=== PATIENT | female | born 2000 | race Caucasian/White ===

== ENCOUNTER 2021-03-16 14:11 | Outpatient (REF) | payer OTHER, SELFPAY ==
[2021-03-17 08:23] LABS: BV Int Neg Control Negative (Negative); BV Int Pos Control Positive (Positive)
[2021-03-17 08:28] LABS: CT PCR NOT DETECTED (Not Detect.); NG PCR NOT DETECTED (Not Detect.)
== END 2021-03-16 14:12 | disposition home or self-care (01) ==
LOC: HO.LAB 14:11
PROVIDERS: PCP Internal Medicine; Visit Provider Advanced Practice Midwife
DX: Z01.419 Encounter for gynecological examination (general) (routine) without abnormal findings (principal); Z11.3 Encounter for screening for infections with a predominantly sexual mode of transmission; B37.3 Candidiasis of vulva and vagina; C53.8 Malignant neoplasm of overlapping sites of cervix uteri; Z20.2 Contact with and (suspected) exposure to infections with a predominantly sexual mode of transmission
CPT/HCPCS: 87480; 87491; 87510; 87591; 87660; 88142

== ENCOUNTER 2021-11-18 09:50 | Outpatient (REF) | payer OTHER, SELFPAY ==
[2021-11-18 11:43] LABS: Appearance Urine CLEAR; Color Urine YELLOW; Glucose Urine UA NEG (NEG); Leukocyte Esterase Urine NEG (NEG); Nitrite Urine NEG (NEG); Specific Gravity - Urine 1.015 (1.005-1.025); Urine Blood NEG (NEG); Urine Ketones NEG (NEG); Urine Protein NEG (NEG-TRACE)
== END 2021-11-18 09:51 | disposition home or self-care (01) ==
LOC: HO.LAB 09:50
PROVIDERS: PCP Internal Medicine; Visit Provider Internal Medicine
DX: R30.0 Dysuria (principal)
CPT/HCPCS: 81003

== ENCOUNTER → 2021-11-29 15:22 | Outpatient (BNVA) | payer OTHER, SELFPAY | PROVIDERS: PCP Internal Medicine; Visit Provider Advanced Practice Midwife | DX: E66.9 Obesity, unspecified (principal); Z30.011 Encounter for initial prescription of contraceptive pills; Z68.33 Body mass index [BMI] 33.0-33.9, adult; Z30.09 Encounter for other general counseling and advice on contraception; Z87.891 Personal history of nicotine dependence | CPT/HCPCS: Q3014 ==

== ENCOUNTER 2023-09-27 09:27 | Emergency (ER) | payer SELFPAY ==
[2023-09-27 09:31] VITALS: BP 124/85; PULSE 112; RESP 19; TEMP 36.6; O2SAT 96; BMI 34.3
[2023-09-27 10:07] LABS: IDNOW Serial# 08D9AD1C
[2023-09-27 10:08] LABS: COVID-19 Test Negative (Negative); IDNOW Serial# 152EDE1D; Influenza A Positive (Negative); Influenza B2 Negative (Negative)
--- NOTE | 2023-09-27 11:00 | ED_ITS ---
HPI - General Adult General Chief complaint: General Medical Stated complaint: flu symtons Time Seen by Provider: 09/27/23 09:57 Source: patient Mode of arrival: ambulatory Limitations: no limitations History of Present Illness HPI narrative: 23 year old female with no significant pmhx presents to the ED for evaluation of flu-like symptoms x3 days. Reports dry cough, fever, chills, nausea and vomiting. Reports waking up this morning feeling much better however now reports diarrhea. Has been taking Nyquil and Dayquil at home which provides relief. Her boyfriend is sick with same symptoms. Denies sore throat, chest pain, shortness of breath, abdominal pain, constipation, dysuria. Related Data Previous Rx's Medication Instructions Recorded escitalopram oxalate 10 mg tablet 10 mg PO DAILY 30 days #30 tabs 10/18/21 Allergies Allergy/AdvReac Type Severity Reaction Status Date / Time adhesive [ADHESIVE] Allergy Intermediate BLISTERS/RA Verified 09/27/23 09:31 Review of Systems Review of Systems: Constitutional: +fever, +chills, No fatigue, night sweats, weight changes ENT/Mouth: No ear pain, hearing loss, nasal congestion, sinus pain, rhinorrhea, sore throat Eyes: No eye pain, swelling, redness, vision changes, discharge Cardio: No chest pain, palpitations, VÁZQUEZ, orthopnea, peripheral edema Pulm: No SOB, cough, sputum, wheezing, dyspnea, hemoptysis GI: +nausea, +vomiting, No hematemesis, abdominal pain, +diarrhea, No constipation, hematochezia, melena : No irregular bleeding, dysuria, frequency, urgency, hesitancy, hematuria, flank pain MSK: No back pain, neck pain, joint pain, myalgias Skin: No lesions, rashes Neuro: No weakness, numbness, paresthesias, LOC, dizziness, headache All other systems reviewed and are negative. [facility]LY [facility] Past Medical History Attestation statement: The following information was validated with the patient. Source: old records reviewed and nursing notes reviewed Onset Date is defined in the Problem List Problems that require an onset date and time if occurred within 24 hrs of arrival to the ED Aortic Dissection and Rupture; Neurologic impairment; Cardiopulmonary Arrest; Endotracheal Intubation; Insertion or Replacement of Mechanical Circulatory Assist Device Medical History Class 1 obesity with body mass index (BMI) of 33.0 to 33.9 in adult TREE (generalized anxiety disorder) Insomnia Physical exam Severe recurrent major depression without psychotic features Surgical History History of tonsillectomy Family History Family History Mother Mental health disorder Substance use disorder Father COPD (chronic obstructive pulmonary disease) Social History Social History Housing: Apartment Alcohol intake: current Alcohol intake frequency: a few times a month Alcohol type: beer Patient Tobacco Use Status: Former Tobacco user Tobacco use type: Cigarette Cigarettes Per Day: 6 e-Cigarette/Vaping Use: Currently Using Second Hand Smoke Exposure: No Advance Directives: No service: No Current occupational status: employed Current occupational exposures/hazards: No Gender identity: Female Physical Exam ED Vital Signs: Vital Signs - 24 hr 09/27/23 09:31 Temperature 98 F Pulse Rate 112 H Respiratory Rate 19 Blood Pressure 124/85 Pulse Oximetry 96 BMI result Body Mass Index 34.3 Vital signs stable, afebrile Const General: cooperative, healthy appearing, comfortable, no acute distress, alert and awake Orientation/consciousness: patient oriented x3 Limitations: no limitations HENMT Other: + posterior oropharynx w/o erythema or edema, uvula is midline, no tonsilar exudates or peritonsillar masses, controlling secretions and speaking in complete sentences. Head: Yes normal to inspection, Yes normocephalic and Yes atraumatic Ears: hearing grossly normal bilaterally, external ears normal, TM's normal bilaterally, EAC's normal, mastoids normal and no periauricular adenopathy General nose exam: Normal external nose present and No nasal discharge present Face and sinus: Yes normal facial exam and Yes sinuses nontender Eyes General: appearance normal, both eyes and all related structures Pupils: Equal, round and reactive pupils present Neck Other: + no cervical, submandibular or submental LAD. Neck: Yes normal visual inspection and Yes full ROM Resp Effort & Inspection: normal respiratory effort and able to speak in complete sentences Auscultation: clear to auscultation bilaterally Cardio Rate: regular rate Rhythm: regular rhythm GI Inspection: Yes normal to inspection Palpation (GI): Soft to palpation and nontender Skin General skin exam: no rashes or lesions noted Neuro General: patient oriented x3, gait normal and moves all extremities Cranial nerves: Yes Equal, round and reactive pupils present Extrem General: Yes normal to inspection Course Course Course Narrative: Positive for influenza. discussed results with patient and education on symptomatic treatment. Patient has remained stable throughout ED visit today. Discussed strict return precautions. All questions answered at this time. Patient is agreeable with disposition and stable for discharge. Medical Decision Making Medical Decision Making [facility] Narrative: 23 year old female with no significant pmhx presents to the ED for evaluation of flu-like symptoms x3 days. Patient nontoxic appearing, in NAD. B/l EACs and Tms wnl. postrior oropharynx wnl. lungs cta b/l. abd soft, nd/nt, no rebound or guarding. Concern for viral syndrome, gastroenteritis, gastritis. Low suspicion for strep throat, mono. 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 Plan for viral serology. Differential Diagnosis Differential Diagnoses: The differential diagnosis associated with the presentation includes as above. Admission/Observation Not indicated Lab Data [facility] Lab Attestation statement: I reviewed the patient's lab results. as above Labs: Lab Results 09/27/23 Range/Units 09:39 COVID-19 (ISAI) Negative (Negative) COVID-19 Clin Com See Note Influenza Type A (CHRISTOPHE) Positive A (Negative) Influenza Type B (CHRISTOPHE) Negative (Negative) Influenza A & B Note See Note External Record Review External record reviewed: Inpatient record Prescription Management I considered prescription management with: Pain Medication Social Determinants Patient?s care significantly limited by Social Determinants of Health including: Other Social Determinant of Health Critical Care Time Critical Care Time Critical Care Time: No Discharge Plan Discharge Clinical Impression: Influenza A Patient Disposition: Home, Self-Care Instructions: Influenza (ED), Flu Shot (Vaccine) for Adults (ED) Additional Instructions: Today you tested positive for influenza A. Take Ibuprofen or Tylenol as needed for fevers or body aches.? Practice social distancing and good hand hygiene. Drink plenty of fluids. Follow-up with your primary care provider. Return to the emergency department with new or worsening symptoms. In case of emergency call 911 You can purchase a pulse oximeter from your local pharmacy or grocery store, and monitor your oxygen saturation if it goes below 94% you should return to the emergency department for further evaluation. Prescriptions: No Action escitalopram oxalate 10 mg tablet 10 mg PO DAILY 30 Days Qty: 30 0RF Stand Alone Forms: Work/School Release Interventions: ED Discharge Assessment Last Done: 09/27/23 11:24 Discharge Date/Time: 09/27/23 11:24
== END 2023-09-27 11:24 | disposition home or self-care (01) ==
PROVIDERS: Emergency Provider Emergency Medicine; PCP Internal Medicine
DX: J10.1 Influenza due to other identified influenza virus with other respiratory manifestations (principal); R19.7 Diarrhea, unspecified; Z11.52 Encounter for screening for COVID-19; Z87.891 Personal history of nicotine dependence
CPT/HCPCS: 87502; 87635; 99282; 99283

== ENCOUNTER 2024-05-26 13:53 | Outpatient (AMB) | payer OTHER, SELFPAY ==
--- NOTE | 2024-05-26 14:46 | MHC.OFFWIV ---
Intake Vital Signs 05/26/24 14:47 Height 5 ft 4 in Weight 207 lb BMI 35.5 BP 112/76 Blood Pressure Location Rt brachial Position Sitting Pulse 99 Pulse Source Pulse Oximeter Temp 98.1 F Temp Source Oral Pulse Oximetry (%) 98 Oxygen Delivery Method Room Air Intake Visit Reasons: EP SOB, cough chest tightness/10 weeks Intake Note: Patient here for SOB that started yesterday. cough that has been present for about 1 week. Patient Tobacco Use Status: Former Tobacco user Allergies adhesive [ADHESIVE] Allergy (Intermediate, Verified 05/26/24 14:48) BLISTERS/RASH Do you need a note to return to daycare/school/sports/work: Yes HPI HPI Comments History of Present Illness Details Patient is a 24-year-old female who is 10 weeks , estimated due date December 22. She states she has not gotten any imaging of the baby yet nor has she seen a physician but does have an appointment scheduled later this month to see a scrummaster. She is complaining of 1 week of shortness of breath, headaches, cough and congestion. She states she vomited once after having a coughing attack but denies any nausea or diarrhea. She denies having a history of asthma. She states her boyfriend is also sick, neither 1 of them have tested for COVID. She states she has used an inhaler in the past when she feels like this and it has worked well, she says she bottles her dad's inhaler. [facility] Medical History Class 1 obesity with body mass index (BMI) of 33.0 to 33.9 in adult TREE (generalized anxiety disorder) Insomnia Physical exam Severe recurrent major depression without psychotic features Surgical History History of tonsillectomy Family History Mother Mental health disorder Substance use disorder Father COPD (chronic obstructive pulmonary disease) Social History Housing: Apartment Alcohol intake: current Alcohol intake frequency: a few times a month Alcohol type: beer Patient Tobacco Use Status: Former Tobacco user Tobacco use type: Cigarette Cigarettes Per Day: 6 e-Cigarette/Vaping Use: Currently Using Second Hand Smoke Exposure: No service: No Current occupational status: employed Current occupational exposures/hazards: No Gender identity: Female Female Reproductive History Menstrual Age of Menarche: 11 Review of Systems Const All systems reviewed & are unremarkable except as noted in HPI and below Physical Exam Vital Signs: Last Vital Signs Temp 98.1 F 05/26/24 14:47 Pulse 99 05/26/24 14:47 BP 112/76 05/26/24 14:47 Pulse Ox 98 05/26/24 14:47 Oxygen Delivery Method Room Air 05/26/24 14:47 BMI result Body Mass Index 35.5 Const General: cooperative, healthy appearing, comfortable and no acute distress Orientation/consciousness: patient oriented x3 Limitations: no limitations HEENT Head: Yes normal to inspection Ears: hearing grossly normal bilaterally, external ears normal and TM's normal bilaterally General nose exam: Normal external nose present, Normal nares present and No nasal discharge present Face and sinus: Yes normal facial exam and Yes sinuses nontender Mouth: Normal oral and palatal mucosa present and moist mucous membranes Throat: Yes tonsils normal, Yes uvula midline and Yes posterior oropharynx abnormal (Erythema) Eyes General: appearance normal, both eyes and all related structures Neck Neck: Yes normal visual inspection Resp Effort & Inspection: normal respiratory effort, able to speak in complete sentences, Actively coughing, no respiratory distress, not tachypneic, no tripod positioning and no use of accessory muscles Auscultation: clear to auscultation bilaterally Cardio Rate: regular rate Rhythm: regular rhythm Heart sounds: normal S1 and S2 Skin General skin exam: no rashes or lesions noted Neuro General: patient oriented x3 Extrem General: Yes normal to inspection and Yes no clubbing, cyanosis or edema Assessment & Plan Assessment & Plan (1) URI (upper respiratory infection): Code(s): J06.9 - Acute upper respiratory infection, unspecified Qualifiers: URI type: unspecified viral URI Qualified Code(s): J06.9 - Acute upper respiratory infection, unspecified Plan: Vital signs are stable, patient is well-appearing and lungs are clear. Likely viral, sent flu COVID and RSV, did send an inhaler for symptomatic relief. Recommended using Tylenol to manage her headache and checking with her OBGYN to see which [id number] medications are safe in . Recommended she stay well hydrated as well. If she experiences worsening shortness of breath, she should go to the emergency department. Plan see above Orders: Orders SARS-CoV2/FLU/RSV Today J06.9 - Acute upper respiratory infection, unspecified Coding Level of Care Code Est Pt Level 3 (67545) Diagnoses Viral upper respiratory tract infection J06.9 URI type: unspecified viral URI
[2024-05-26 14:47] VITALS: BP 112/76; PULSE 99; TEMP 36.7; O2SAT 98; BMI 35.5
== END 2024-05-26 15:29 | disposition home or self-care (01) ==
PROVIDERS: PCP Internal Medicine; Visit Provider Physician Assistant
DX: J06.9 Acute upper respiratory infection, unspecified (principal)
CPT/HCPCS: 99213

== ENCOUNTER 2024-05-26 14:55 | Outpatient (REF) | payer OTHER, SELFPAY ==
[2024-05-26 17:35] LABS: Influenza A PCR NEGATIVE (Negative); Influenza B PCR NEGATIVE (Negative); Resp Syncy Virus RNA Qual PCR NEGATIVE (Negative); SARS COV2 PCR INHOUSE NEGATIVE (Negative)
== END 2024-05-26 14:56 | disposition home or self-care (01) ==
LOC: HO.LNP 14:55
PROVIDERS: Visit Provider Physician Assistant
DX: J06.9 Acute upper respiratory infection, unspecified (principal)
CPT/HCPCS: 0241U

== ENCOUNTER 2024-10-23 09:48 | Emergency (ER) | payer OTHER, SELFPAY ==
[2024-10-23 09:59] VITALS: BP 142/82; PULSE 117; RESP 18; TEMP 36.4; O2SAT 97; BMI 32.1
--- NOTE | 2024-10-23 10:11 | ED_ITS ---
HPI - Dental/Oral General Chief complaint: Dental/Oral Stated complaint: dental pain Time Seen by Provider: 10/23/24 10:02 Source: patient and RN notes reviewed Mode of arrival: ambulatory Limitations: no limitations History of Present Illness ED Provider: Daya Mendes PA-C HPI Narrative: This is a 24-year-old female, 7 months , , who presents emergency department with a dental pain since yesterday. Patient has had ongoing dental pain in this region intermittently since last summer. Denies any fevers or chills. She is up-to-date with all her care. Baby is active, no vaginal bleeding or discharge. No abdominal cramping. No fevers, chills, chest pain, shortness for breath, abdominal pain, nausea, vomiting or diarrhea. She has been taking Tylenol for her symptoms with minimal relief. No other complaints or concerns at this time. MD Complaint: tooth pain Location: Tooth # (3) Onset (ago): day(s) Duration: constant Related Data Home Medications ?Medication ?Instructions ?Recorded ?Confirmed vitamin with calcium 1 tab PO DAILY 05/26/24 no.72-iron 27 mg-folic acid 1 mg tablet (M- Plus) Previous Rx's ?Medication ?Instructions ?Recorded albuterol sulfate 90 mcg/actuation 2 puff inhalation Q6H PRN 05/28/24 aerosol inhaler shortness of breath or wheezing or cough #8.5 grams amoxicillin 875 mg-potassium 1 tab PO BID 7 days #14 tabs 10/23/24 clavulanate 125 mg tablet Allergies Allergy/AdvReac Type Severity Reaction Status Date / Time adhesive [ADHESIVE] Allergy Intermediate BLISTERS/RA Verified 10/23/24 10:01 Review of Systems Review of Systems: Yes all other systems are reviewed and are negative REPLACED BY [facility] Past Medical History Medical History Class 1 obesity with body mass index (BMI) of 33.0 to 33.9 in adult TREE (generalized anxiety disorder) Insomnia Physical exam Severe recurrent major depression without psychotic features Surgical History History of tonsillectomy Family History Family History Mother Mental health disorder Substance use disorder Father COPD (chronic obstructive pulmonary disease) Social History Social History Housing: Apartment Alcohol intake: current Alcohol intake frequency: a few times a month Alcohol type: beer Patient Tobacco Use Status: Former Tobacco user Tobacco use type: Cigarette Cigarettes Per Day: 6 e-Cigarette/Vaping Use: Currently Using Second Hand Smoke Exposure: No Advance Directives: No Advance Directives Information Provided: Yes Do you have a plan to hurt others: No Plan service: No Current occupational status: employed Current occupational exposures/hazards: No Gender identity: Female Physical Exam Vital Signs: Vital Signs: Last Vital Signs Temp 97.6 F 10/23/24 11:07 Pulse 117 H 10/23/24 11:07 Resp 18 10/23/24 11:07 BP 142/82 H 10/23/24 11:07 Pulse Ox 97 10/23/24 11:07 O2 Del Method Room Air 10/23/24 11:07 BMI result Body Mass Index 32.1 Const: Other: General: Awake, alert, and oriented X3. No acute distress. HEENT: Right upper dentition, tooth 3., with tenderness palpation, no surrounding gingival erythema or edema. No obvious facial swelling. No abscess. CVS: Normal heart rate and rhythm. Pulses normal. Respiratory: No respiratory distress Skin: Warm, dry, no rashes noted to exposed skin. Normal skin color. Normal skin turgor. Extremities: Normal to inspection Neuro: Oriented X 3. No motor deficit. No sensory deficit. Medical Decision Making Medical Decision Making [facility] Narrative: This is a 24-year-old female who presents emergency department with complaints of right upper dental pain for the last day. Patient with tenderness palpation overlying tooth 3. No evidence of dental decay, or dental abscess. No drainable abscess seen. Will treat with amoxicillin. Given strict return precautions. She will follow-up with a dentist. She has had no complications with her thus far, active movement, no vaginal bleeding discharge, abdominal pain. Stable for discharge Differential Diagnosis Differential Diagnoses: The differential diagnosis associated with the presentation includes Dental decay, dental abscess, TMJ Discharge Plan Discharge Clinical Impression: Pain, dental Patient Disposition: Home, Self-Care Instructions: Toothache (ED) Additional Instructions: You were seen in the emergency department due to dental pain. Please take prescribed antibiotic as directed, finish the entire course even if your symptoms improve. You may take Tylenol as needed for pain and symptoms. Follow-up with your dentist. If any new or worsening symptoms occur including but not limited to worsening pain, worsening swelling, fevers or chills, please seek emergent care. Prescriptions: New amoxicillin-pot clavulanate 875-125 mg tablet 1 tab PO BID 7 Days Qty: 14 0RF No Action albuterol sulfate 90 mcg/actuation HFA aerosol inhaler 2 puff inhalation Q6H PRN (Reason: shortness of breath or wheezing or cough) Qty: 8.5 0RF M-Lani Plus 27 mg iron- 1 mg tablet 1 tab PO DAILY Interventions: ED Discharge Assessment Last Done: 10/23/24 11:07 Discharge Date/Time: 10/23/24 11:08 Print Language: Vincentian
--- OUTSIDE RECORDS SUMMARY | 2024-10-23 10:29 | XMS_ITS | Encounter Summary ---
Author Organization [facility] Address [address] [place] [phone] Phone Care Team Providers Care Wilderness Guide Name Role Phone Amy Son MD Primary Care Provider Unavailabl e Encounter Details Date Type Department Care Team (Late st Contact Info) Description 05/03/2017 Conversion Encounter [facility] - [address] [address] Social History Tobacco Use Types Packs/Day Years Used Date Smoking Tobacco: Never Comments:Never smoker Comments Unknown Sex and Gender Information Value Date Recorded Sex Assigned at Not on file Legal Sex Female 4:56 PM EDT Gender Identity Not on file Sexual Orientation Not on file documented as of this encounter Plan of Treatment Not on file documented as of this encounter Visit Diagnoses Not on filedocumented in this encounter Care Teams Wilderness Guide Relationship Specialty Start Date End Date Amy Son MD PCP - General 04/27/17 documented as of this encounter
--- OUTSIDE RECORDS SUMMARY | 2024-10-23 10:29 | XMS_ITS | Clinical Summary ---
Author Organization [facility] Address [address] [place] [address] Care Team Providers Care Endoscopy Rn Name Role Phone Unavailable Primary Care Provider Unavailabl e Social History Tobacco Use Types Packs/Day Years Used Date Smoking Tobacco: Never Assessed Sex and Gender Information Value Date Recorded Sex Assigned at Not on file Gender Identity Not on file Sexual Orientation Not on file Plan of Treatment Health Maintenance Due Date Last Done Comments HPV Vaccines (1 - 3-dose series) 2014 DTaP,Tdap,and Td Vaccines (1 - Tdap) 2018 Hepatitis B Vaccines (1 of 3 - 19+ 3-dose series) 2018 Cervical Cancer Screening: P ap Smear 02/23/2020 COVID-19 Vaccine ( - 2023-2 5 season) 2024 Influenza Vaccine (#1) 2024 HIB Vaccines Aged Out No longer eligi ble based on patient's age to complete this topic Hepatitis A Vaccines Aged Out No long er eligible based on patient's age to complete this topic IPV Vaccines Aged Out No longer eligi ble based on patient's age to complete this topic MMR Vaccines Aged Out No longer eligi ble based on patient's age to complete this topic Meningococcal ACWY Vaccine Aged Out N o longer eligible based on patient's age to complete this topic Pneumococcal Vaccine: Pediat rics (0 to 5 Years) and At-Risk Patients (6 to 64 Years) Aged Out No longer eligible b ased on patient's age to complete this topic RSV Immunization Patients Un alyssa 20 months Aged Out No longer eligible b ased on patient's age to complete this topic Varicella Vaccines Aged Out No longer eligible based on patient's age to complete this topic
--- OUTSIDE RECORDS SUMMARY | 2024-10-23 10:29 | XMS_ITS | Encounter Summary ---
Author Organization [facility] Address [address] [place] [phone] Phone Care Team Providers Care Automobile Insurance Claim Examiner Name Role Phone Amy Son MD Primary Care Provider Unavailabl e Encounter Details Date Type Department Care Team (Late st Contact Info) Description 05/11/2015 Documentation [facility] Family Medicine [address] [place] [address] Family Medicine, Physician [facility] [address] [place], [place] [address] Social History Tobacco Use Types Packs/Day Years [...] on filedocumented in this encounter Care Teams Automobile Insurance Claim Examiner Relationship Specialty Start Date End Date Amy Son MD PCP - General 04/27/17 documented as of this encounter
--- OUTSIDE RECORDS SUMMARY | 2024-10-23 10:30 | XMS_ITS | Encounter Summary ---
Author Organization [facility] Address [address] [place] [phone] Phone Care Team Providers Care Dispatcher Electric [employer] Name Role Phone Amy Son MD Primary Care Provider Unavailabl e Encounter Details Date Type Department Care Team (Late st Contact Info) Description 11/12/2014 Documentation [facility] [address] [place] [address] Family Medicine, Physician [facility] [address] [place], [place] [id number] Social History Tobacco Use Types Packs/Day Years Used Date Smoking Tobacco: Never Assessed Comments Unknown Sex and Gender Information Value Date Recorded Sex Assigned at Not on file Legal Sex Female 4:56 PM EDT Gender Identity Not on file Sexual Orientation Not on file documented as of this encounter Plan of Treatment Not on file documented as of this encounter Visit Diagnoses Not on filedocumented in this encounter Care Teams Dispatcher Electric [employer] Relationship Specialty Start Date End Date Amy Son MD PCP - General 04/27/17 documented as of this encounter
--- OUTSIDE RECORDS SUMMARY | 2024-10-23 10:30 | XMS_ITS | Clinical Summary ---
Author Organization [facility] Address [address] [place] [phone] Phone Care Team Providers Care Player Services Representative Name Role Phone Amy Son MD Primary Care Provider Unavailabl e Immunizations Immunization Administration Dates Next Due DTaP 5 10/05/2003, 0,1999, 999,1999 HPV, Quadrivalent 02/19/2015,05/01/2014,01/30/20 14 Hep A, ped/adol 02/19/2015,01/29/2014 Hep B, ped/adol 03/02/2000,1999,1999 Hib (HbOC) 07/11/2000, 9,1999, 999 IPV 10/05/2003, 0,1999, 999 Influenza, injectable, quadrivalent 07/17/2014 Influenza, injectable, trivalent 06/07/2011,12/0 09/2009 MMR 10/05/2003,07/11/2000 Meningococcal Polysaccharide 06/07/2011 Pneumococcal Conjugate 07/11/2000 Tdap 11/29/2009 Varicella 10/05/2003,03/02/2000 Family History Relation Name Status Comments Brother Brother: Asthma Other No family histo ry of *Thrombophilia, No family history of Strabismus, No family history of *Sudden /NM under 55, No family history of Migraines, No family history of Cancer, No family history of Hyperlipidemia, No family history of Diabetes mellitus, No family history of Deafness, No family history of Seizure disorder, No family history of *Heart Disease, Family history of Obesity, No family history of *CVA/Stroke, Family history of ADD/ADHD Social History Tobacco Use Types Packs/Day Years Used Date Smoking Tobacco: Never Comments:Never smoker Comments Unknown Sex and Gender Information Value Date Recorded Sex Assigned at Not on file Legal Sex Female 4:56 PM EDT Gender Identity Not on file Sexual Orientation Not on file Last Filed Vital Signs Vital Sign Reading Time Taken Comments Blood Pressure 111/67 01/26/2016 12:00 AM EDT Pulse 110 01/26/2016 12:00 AM EDT Temperature 37.1 ??C (98.8 ??F) 01/26/2016 12:00 AM E DT Respiratory Rate - - Oxygen Saturation - - Inhaled Oxygen Concentration - - Weight 85.3 kg (188 lb) 01/26/2016 12:00 AM EDT Height 162.3 cm (5' 3.9 ) 01/26/2016 12:00 AM ED T Body Mass Index 32.37 01/26/2016 12:00 AM EDT Plan of Treatment Health Maintenance Due Date Last Done Comments DTaP,Tdap,and Td Vaccines (7 - Td or Tdap) 11/30/2019 11/29/2009, 10/05/2003, 07/11/2000, Additional history exists Influenza Vaccines (#1) 2024 07/17/20 14, 06/07/2011, 08/17/2010 COVID-19 Vaccine ( season) 2024 Hepatitis B Vaccines Completed 03/02/2000, 1999, 1999 HIB Vaccines Completed 07/11/2000, 02/1999, 1999, Additional history exists Pneumococcal Vaccine Aged Out 07/11/2000 No long er eligible based on patient's age to complete this topic IPV Vaccines Completed 10/05/2003, 11/15, 1999, Additional history exists MMR Vaccines Completed 10/05/2003, 07/11/2000 Varicella Vaccines Completed 10/05/2003, 03/02/2000 HPV Vaccines Completed 02/19/2015, 04/17, 01/29/2014 Hepatitis A Vaccines Completed 02/19/2015, 01/30/20 14 Men B Vaccine Aged Out No longer elig ible based on patient's age to complete this topic Meningococcal Vaccine Aged Out No sagrario lacho eligible based on patient's age to complete this topic Procedures * Due to [place] state law, this organization might not be sharing sensitive test results. Procedure Name Priority Date/Time Associated Diagnosis Comments CHLAMYDIA AND GONORRHEA, AMPLIFIED Routine 11/12/2015 1:58 PM EST from Last 3 Months or Most Recently Relevant to Health Maintenance Results * Due to [place] state law, this organization might not be sharing sensitive test results. * Chlamydia and Gonorrhoea, Amplified (11/12/2015 1:58 PM EST) URINE CHLAMYDIA AMP PROBE NEGATIVE [facility] Comment: No Chlamydia Trachomatis RNA detected in this patient's sample (REFERENCE RANGE/NORMAL VALUE: NOT DETECTED) URINE GC AMP PROBE NEGATIVE [facility] Comment: No Neisseria Gonorrhoeae RNA detected in this patient's sample (REFERENCE RANGE/NORMAL VALUE: NOT DETECTED) NOTE: This test uses typo machine operator-mediated amplification method to detect rRNA from C.Trachomatis and N.Gonorrhoeae. A negative result does not preclude infection. In the case of a negative urine result, testing of an endocervical(female) or urethral(male) specimen is recommended if there is high clinical suspicion of infection. The performance characteristics of this test have not been evaluated in children. The Aptima Combo2 assay is not intended for the evaluation of suspected sexual abuse or for other medico-legal indications. The ordering provider should assess if the patient had consensual sex without risk of sexual abuse. Consult the [facility] if needed. Contact phone number . Therapeutic failure or success cannot be determined with the Aptima Combo2 assay since nucleic acid may persist following appropriate antimicrobial therapy. The Centers for Disease Control and Prevention (CDC) recommends confirmatory retesting using culture or a different nucleic acid amplification test when positive results occur, if indicated. Testing performed or reported by [facility], a Service of [facility], [address] [place] [address] [place] [address] CLIA ??[id number] Victorino Fletcher MD, PhD, Core Dipper 11/12/2015 1:58 PM EST Narrative [facility] - 11/12/2015 1:58 PM EST URINE CHLAMYDIA GC AMP PROBE us Amy Son MD LAB MICROBIOLOGY - GENERAL ORDER WAYLON Final Result [facility] [address] [place] [address], from Last 3 Months or Most Recently Relevant to Health Maintenance Care Teams Player Services Representative Relationship Specialty Start Date End Date Amy Son MD PCP - General 04/27/17
[2024-10-23 11:07] VITALS: BP 142/82; PULSE 117; RESP 18; TEMP 36.4; O2SAT 97
== END 2024-10-23 11:08 | disposition home or self-care (01) ==
PROVIDERS: Emergency Provider Emergency Medicine; PCP Internal Medicine
DX: K08.89 Other specified disorders of teeth and supporting structures (principal); Z79.899 Other long term (current) drug therapy
CPT/HCPCS: 99282; 99283

== ENCOUNTER 2025-04-07 11:17 | Emergency (ER) | payer OTHER, SELFPAY ==
[2025-04-07 11:38] VITALS: BP 133/97; PULSE 106; RESP 16; TEMP 36.7; O2SAT 100; BMI 35.5
--- NOTE | 2025-04-07 11:42 | ED.GENADULT ---
HPI - General Adult General Chief complaint: Dental/Oral Stated complaint: right side face swollen tooth pain Time Seen by Provider: 04/07/25 11:42 Source: patient Mode of arrival: ambulatory Limitations: no limitations History of Present Illness ED Provider: Alireza Antonio HPI narrative: 25 yold female with pmh or recurrent right upper molar tooth infection. patient sttates woke up slight righy upper molar facial swelling and pain. patinet states right upper molar has to be extracted, but has had not time to go to dentists. Related Data Home Medications ?Medication ?Instructions ?Recorded ?Confirmed vitamin with calcium 1 tab PO DAILY 05/26/24 no.72-iron 27 mg-folic acid 1 mg tablet (M-Lani Plus) Previous Rx's ?Medication ?Instructions ?Recorded albuterol sulfate 90 mcg/actuation 2 puff inhalation Q6H PRN 05/28/24 aerosol inhaler shortness of breath or wheezing or cough #8.5 grams amoxicillin 875 mg-potassium 1 tab PO BID 7 days #14 tabs 10/23/24 clavulanate 125 mg tablet amoxicillin 875 mg-potassium 1 tab PO Q12H 10 days #20 tabs 04/07/25 clavulanate 125 mg tablet Allergies Allergy/AdvReac Type Severity Reaction Status Date / Time adhesive (ADHESIVE) Allergy Intermediate BLISTERS/RA Verified 04/07/25 11:43 Review of Systems Review of Systems: right upper molar pain Yes all other systems are reviewed and are negative [facility] Past Medical History Medical History Class 1 obesity with body mass index (BMI) of 33.0 to 33.9 in adult TREE (generalized anxiety disorder) Insomnia Physical exam Severe recurrent major depression without psychotic features Surgical History History of tonsillectomy Family History Family History Mother Mental health disorder Substance use disorder Father COPD (chronic obstructive pulmonary disease) Social History Social History Housing: Apartment Alcohol intake: current Alcohol intake frequency: a few times a month Alcohol type: beer Patient Tobacco Use Status: Former Tobacco user Tobacco use type: Cigarette Cigarettes Per Day: 6 e-Cigarette/Vaping Use: Currently Using Second Hand Smoke Exposure: No Advance Directives: No Advance Directives Information Provided: Yes Do you have a plan to hurt others: No Plan service: No Current occupational status: employed Current occupational exposures/hazards: No Gender identity: Female Physical Exam ED Vital Signs: Vital Signs - 24 hr 04/07/25 11:38 04/07/25 12:01 Temperature 98.1 F 98.1 F Pulse Rate 106 H 106 H Respiratory Rate 16 16 Blood Pressure 133/97 H 133/97 H Pulse Oximetry 100 100 Oxygen Delivery Method Room Air Room Air BMI result Body Mass Index 35.5 Const General: cooperative, healthy appearing, comfortable, no acute distress, well developed, alert, awake and Physically active Orientation/consciousness: patient oriented x3 HENMT Other: negative for any facial/neck swelling Head: Yes normal to inspection, Yes No palpable skull fracture present, Yes normocephalic and Yes atraumatic Ears: hearing grossly normal bilaterally, external ears normal, TM's normal bilaterally, TM normal on the right, TM normal on the left, EAC's normal, mastoids normal and no periauricular adenopathy Teeth image:  1. tenderness on palpation with mild yellow collection. negative for trisums, gum swelling, or redness. Throat: Yes posterior oropharynx normal, Yes tonsils normal and Yes uvula midline Eyes General: appearance normal, both eyes and all related structures Neck Neck: Yes normal visual inspection, Yes full ROM, Yes no lymphadenopathy, Yes no meningeal signs, Yes trachea midline, Yes supple, No anterior neck swelling and No tender Chest Chest palpation & inspection: normal inspection of the chest and normal palpation of entire chest wall Resp Effort & Inspection: normal respiratory effort and able to speak in complete sentences Auscultation: clear to auscultation bilaterally Cardio Jugular venous distension: no JVD Heart sounds: S1 normal heart sound present and S2 normal heart sound present GI Inspection: Yes normal to inspection Palpation (GI): Soft to palpation, not firm, nontender, no guarding and not rigid General: Yes no CVA tenderness Back/Spine/Pelvis Back: no CVA tenderness and No back tenderness Skin General skin exam: no rashes or lesions noted, elasticity normal and turgor normal Neuro General: patient oriented x3, gait normal, tone normal, moves all extremities, Normal light touch and pain sensation, no meningeal signs, no focal motor deficits and CN's II-XI intact bilaterally Extrem General: Yes normal to inspection, Yes full ROM and Yes capillary refill normal Psych Appearance: grossly normal, well kempt and not disheveled Medical Decision Making Medical Decision Making MDM Narrative: 25 yold female presents to ED for right upper molar pain and facial swollen since last night. Patient has history of right upper molar tooth infection that needs to be extracted by 10 since but does not have time. Patient denies any drooling, change in voice, recent dental work, tongue swelling, chest pain, fever, recent trauma, or chills. Negative for signs of peritonsillar abscess, Ross's angina, retropharyngeal abscess, trismus, or any other life-threatening etiology. Differential Diagnosis Differential Diagnoses: The differential diagnosis associated with the presentation includes (Dental infection, cracked tooth, gum infection) Admission/Observation Consideration of admission/observation: Escalation of care including admission/observation considered Independent Historian Clinical information obtained from an independent historian. History obtained from or confirmed by: Other (Patient) Prescription Management I considered prescription management with: Antibiotic Discharge Plan Discharge Clinical Impression: Toothache Patient Disposition: Home, Self-Care Instructions: Toothache (ED) Additional Instructions: Recommend follow-up with a dentist. We gave you a list of dental clinics to call for follow-up. Return to the ED immediately for any facial drooping, swelling of the face, severe dental pain, drooling, change in voice, sensation of throat closing, fever, chills, inability top aguirre solid food/liquid, or any other concerning symptoms. Continue taking Motrin [id number] you have at home for pain. Prescriptions: New amoxicillin-pot clavulanate 875-125 mg tablet 1 tab PO Q12H 10 Days Qty: 20 0RF No Action albuterol sulfate 90 mcg/actuation HFA aerosol inhaler 2 puff inhalation Q6H PRN (Reason: shortness of breath or wheezing or cough) Qty: 8.5 0RF amoxicillin-pot clavulanate 875-125 mg tablet 1 tab PO BID 7 Days Qty: 14 0RF M-Lani Plus 27 mg iron- 1 mg tablet 1 tab PO DAILY Stand Alone Forms: Work/School Release Interventions: ED Discharge Assessment Last Done: 04/07/25 12:01 Discharge Date/Time: 04/07/25 12:00 Print Language: Belarusian
[2025-04-07 12:01] VITALS: BP 133/97; PULSE 106; RESP 16; TEMP 36.7; O2SAT 100
--- OUTSIDE RECORDS SUMMARY | 2025-04-07 13:05 | XMS_ITS | Encounter Summary ---
Author Organization [facility] Address [address] [place] [phone] Phone Care Team Providers Care Director Credit Risk Name Role Phone Amy Son MD Primary Care Provider Unavailabl e Encounter Details Date Type Department Care Team (Late st Contact Info) Description 05/11/2015 Documentation [facility] [place] Family Medicine [address] [place] [address] Family Medicine, Physician [facility] [address] [place], [place] [id number] Social History Tobacco Use Types Packs/Day Years [...] on filedocumented in this encounter Care Teams Director Credit Risk Relationship Specialty Start Date End Date Amy Son MD PCP - General 04/27/17 documented as of this encounter
--- OUTSIDE RECORDS SUMMARY | 2025-04-07 13:05 | XMS_ITS | Clinical Summary ---
Author Organization [facility] Address [address] [place] [address] Care Team Providers Care Picker Machine Operator Name Role Phone Unavailable Primary Care Provider Unavailabl e Social History Tobacco Use Types Packs/Day Years Used Date Smoking Tobacco: Never Assessed Comments Unknown Sex and Gender Information Value Date Recorded Sex Assigned at Not on file Legal Sex Female 10:14 AM EST Gender Identity Not on file Sexual Orientation Not on file Plan of Treatment Health Maintenance Due Date Last Done Comments HPV Vaccines (1 - 3-dose series) 2014 DTaP,Tdap,and Td Vaccines (1 - Tdap) 2018 Hepatitis B Vaccines (1 of 3 - 19+ 3-dose series) 2018 Cervical Cancer Screening: P ap Smear 02/23/2020 COVID-19 Vaccine ( - 2023-2 5 season) 2024 Depression Screening 09/17/2024 Influenza Vaccine (#1) 2025 HIB Vaccines Aged Out No longer eligi [...] patient's age to complete this topic Meningococcal B Vaccine Aged Out No l onger eligible based on patient's age to complete this topic Pneumococcal Vaccine: Pediat rics (0 to 5 Years) and At-Risk Patients (6 to 49 Years) Aged Out No longer eligible b ased on patient's age to complete this topic RSV Immunization Patients Un alyssa 20 months Aged Out No longer eligible b ased on patient's age to complete this topic Varicella Vaccines Aged Out No longer eligible based on patient's age to complete this topic
== END 2025-04-07 12:00 | disposition home or self-care (01) ==
PROVIDERS: Emergency Provider Emergency Medicine; PCP Internal Medicine
DX: K08.89 Other specified disorders of teeth and supporting structures (principal); Z87.891 Personal history of nicotine dependence
CPT/HCPCS: 99282; 99283

== ENCOUNTER 2025-06-13 17:05 | Emergency (ER) | payer OTHER, SELFPAY ==
[2025-06-13 17:12] VITALS: BP 132/79; PULSE 108; RESP 18; TEMP 37.1; O2SAT 98; BMI 34.3
--- NOTE | 2025-06-13 17:13 | ED_ITS ---
HPI - General Adult General Chief complaint: Upper Respiratory Symptoms Stated complaint: sore throat,fatigue,fever Time Seen by Provider: 06/13/25 18:34 Source: patient, RN notes reviewed and old records reviewed Mode of arrival: ambulatory Limitations: no limitations History of Present Illness ED Provider: Radha HAM narrative: Patient is a 25y/o F presenting with complaint of sweats/chills, headache, sore throat since last night. Has not taken any OTC meds. No known sick contacts. MD complaint: sore throat Related Data Home Medications ?Medication ?Instructions ?Recorded ?Confirmed vitamins with calcium 1 tab PO DAILY 05/26/24 no.72-iron 27 mg-folic acid 1 mg tablet (M- Plus) Previous Rx's ?Medication ?Instructions ?Recorded albuterol sulfate 90 mcg/actuation 2 puff inhalation Q 6H PRN 05/28/24 aerosol inhaler shortness of breath or wheez ing or cough #8.5 grams amoxicillin 875 mg-potassium 1 tab PO BID 7 days #14 t abs 10/23/24 clavulanate 125 mg tablet amoxicillin 875 mg-potassium 1 tab PO Q12H 10 days #20 tabs 04/07/25 clavulanate 125 mg tablet Allergies Allergy/AdvReac Type Severity Reaction Status Date / Time adhesive (ADHESIVE) Allergy Intermediate BLISTERS/RA Verified 06/13/25 17:13 Review of Systems Review of Systems: as per hpi Yes all other systems are reviewed and are negative Constitutional: Constitutional: Reports as per HPI [facility] Past Medical History Medical History Class 1 obesity with body mass index (BMI) of 33.0 to 33.9 in adult TREE (generalized anxiety disorder) Insomnia Physical exam Severe recurrent major depression without psychotic features Surgical History History of tonsillectomy Family History Family History Mother Mental health disorder Substance use disorder Father COPD (chronic obstructive pulmonary disease) Social History Social History Housing: Apartment Alcohol intake: current Alcohol intake frequency: a few times a month Alcohol type: beer Patient Tobacco Use Status: Former Tobacco user Tobacco use type: Cigarette Cigarettes Per Day: 6 e-Cigarette/Vaping Use: Currently Using Second Hand Smoke Exposure: No Advance Directives: No Advance Directives Information Provided: No service: No Current occupational status: employed Current occupational exposures/hazards: No Gender identity: Female Physical Exam ED Vital Signs: Vital Signs - 24 hr 06/13/25 17:12 Temperature 98.8 F Pulse Rate 108 H Respiratory Rate 18 Blood Pressure 132/79 Pulse Oximetry 98 Oxygen Delivery Method Room Air BMI result Body Mass Index 34.3 Vital signs have been reviewed and appear to be correct. Blood pressure normal. Heart rate slightly tachycardic. Respiratory rate normal. Temperature normal. Oxygen saturation normal. Const General: cooperative, healthy appearing and no acute distress Orientation/consciousness: oriented to person, oriented to place, oriented to time and patient oriented x3 Limitations: no limitations HENMT Head: Yes normocephalic and Yes atraumatic Ears: hearing grossly normal bilaterally, external ears normal, TM's normal bilaterally and EAC's normal General nose exam: Normal external nose present and Normal nasal mucous membranes and turbinates present Face and sinus: Yes face symmetric Mouth: Normal oral and palatal mucosa present, oropharynx normal, moist mucous membranes, no audible dysphonia, no drooling and no trismus Throat: Yes uvula midline, Yes posterior oropharynx abnormal (erythema without edema or exudate) and No uvular edema Eyes Pupils: Equal, round and reactive pupils present Neck Neck: Yes normal visual inspection, Yes no lymphadenopathy and Yes supple Resp Effort & Inspection: normal respiratory effort and able to speak in complete sentences Auscultation: clear to auscultation bilaterally Cardio Rate: regular rate Rhythm: regular rhythm Heart sounds: S1 normal heart sound present and S2 normal heart sound present GI Palpation (GI): Soft to palpation and nontender Auscultation: normoactive bowel sounds General: Yes no CVA tenderness Back/Spine/Pelvis Back: no CVA tenderness Skin General skin exam: elasticity normal and turgor normal Neuro General: oriented to person, oriented to place, oriented to time, patient or iented x3, moves all extremities, no focal motor deficits and CN's II-XI intact bilaterally Cranial nerves: Yes Equal, round and reactive pupils present Cognition (Neuro): normal cognition Extrem General: Yes full ROM, Yes no pedal edema and Yes no calf tenderness Psych Mental Status: mental status grossly normal Affect: normal affect Thought process: Normal thought process present Course Course Course Narrative: This is a rapid medical exam performed by Yonathan Garcia NP: Additional HPI, ROS, PE not included below will be deferred to primary provider. Patient is a 25y/o F presenting with complaint of sweats/chills, headache, sore throat since last night. Has not taken any OTC meds. Plan: strep and viral swabs Medical Decision Making Medical Decision Making [facility] Narrative: Patient is a 25y/o F presenting with complaint of sweats/chills, headache, sore throat since last night. Has not taken any OTC meds. On exam patient is awake, A+Ox3, VS WNL, afebrile, normal neurological exam without focal deficits, physical exam findings as above. Given reported symptoms and physical exam findings, initial differential includes but is not limited to strep covid, flu, other viral illness. Do not suspect RN GERIATRIC/RPA. Strep and viral swabs negative. Patient updated on results and all questions answered. Discussed with patient that symptoms are likely due to viral syndrome. Advised adequate rest, adequate fluid intake, Tylenol and ibuprofen as needed for fever/pain. Return precautions discussed. Patient verbalized understanding of and agreement with plan. Differential Diagnosis Differential Diagnoses: The differential diagnosis associated with the presentation includes as per [facility] Admission/Observation Consideration of admission/observation: Escalation of care including admission/observation considered Patient would have been admitted to the hospital and transferred to appropriate facility had their clinical presentation warranted hospital admission. Lab Data [facility] Lab Attestation statement: I reviewed the patient's lab results. as per [facility] Labs: Lab Results 06/13/25 Range/Units 17:21 COVID-19 (ISAI) Negative (Negative) COVID-19 Clin Com See Note Influenza Type A (CHRISTOPHE) Negative (Negative) Influenza Type B (CHRISTOPHE) Negative (Negative) Influenza A & B Note See Note S. pyogenes GrpA CHRISTOPHE Negative (Negative) External Record Review External record reviewed: Inpatient record, Office record and Outpatient record Discharge Plan Discharge Clinical Impression: Viral infection Patient Disposition: Home, Self-Care Instructions: Viral Syndrome (ED) Additional Instructions: You were evaluated in the emergency department today for sore throat and cough. Your Covid, flu, and strep tests were all negative. Your symptoms are likely related to a viral illness which will resolve on its own with time and rest. You should ensure adequate fluid intake, and can use Tylenol 650 mg or ibuprofen 600 mg every 6 hours as needed for fever or discomfort. We also recommend using over the counter nasal saline spray to thin your mucous. Please follow-up with your primary care provider this week. Return to the emergency department if you develop chest pain, worsening shortness of breath, difficulty swallowing, fever 100.4? F or greater or any other concerning symptoms. Prescriptions: No Action albuterol sulfate 90 mcg/actuation HFA aerosol inhaler 2 puff inhalation Q6H PRN (Reason: shortness of breath or wheezing or cough) Qty: 8.5 0RF amoxicillin-pot clavulanate 875-125 mg tablet 1 tab PO Q12H 10 Days Qty: 20 0RF amoxicillin-pot clavulanate 875-125 mg tablet 1 tab PO BID 7 Days Qty: 14 0RF M- Plus 27 mg iron- 1 mg tablet 1 tab PO DAILY Print Language: Kazakh
[2025-06-13 17:36] LABS: IDNOW Serial# 6674DD1D; Strep A Nucleic Acid Negative (Negative)
[2025-06-13 17:47] LABS: IDNOW Serial# 152EDE1D; IDNOW Serial# 16C4AD1C; Influenza B2 Negative (Negative)
[2025-06-13 17:48] LABS: COVID-19 Test Negative (Negative)
--- OUTSIDE RECORDS SUMMARY | 2025-06-13 18:20 | XMS_ITS | Encounter Summary ---
Author Organization [facility] Address [address] [place] [phone] Phone Care Team Providers Care Steel Crane Operator Name Role Phone Amy Son MD Primary Care Provider Unavailabl e Encounter Details Date Type Department Care Team (Late st Contact Info) Description 05/03/2017 Conversion Encounter [facility] - [address] [address] Social History Tobacco Use Types Packs/Day Years [...] on filedocumented in this encounter Care Teams Steel Crane Operator Relationship Specialty Start Date End Date Amy Son MD PCP - General 04/27/17 documented as of this encounter
--- OUTSIDE RECORDS SUMMARY | 2025-06-13 18:20 | XMS_ITS | Clinical Summary ---
Author Organization [facility] Address [address] [place] [id number] Phone Care Team Providers Care Tool Specialist Name Role Phone Amy Son MD Primary [...] of Strabismus, No family history of *Sudden /SC under 55, No family history of Migraines, [...] 110 01/26/2016 12:00 AM EDT Temperature 37.1 C (98.8 F) 01/26/2016 12:00 AM EDT Respiratory Rate - - Oxygen Saturation - [...] 07/11/2000, Additional history exists Influenza Vaccines (#1) 2025 07/17/20 14, 06/07/2011, 08/17/2010 COVID-19 Vaccine ( season) 2025 Hepatitis B Vaccines Completed 03/02/2000, 1999, 1999 [...] complete this topic Procedures * Due to [place] state law, this organization might not be sharing sensitive test results. Procedure Name Priority Date/Time Associated Diagnosis Comments CHLAMYDIA AND GONORRHEA, AMPLIFIED Routine 11/12/2015 1:58 PM EST from Last 3 Months or Most Recently Relevant to Health Maintenance Results * Due to [place] state law, this organization might not be sharing sensitive test results. * Chlamydia and Gonorrhoea, Amplified (11/12/2015 1:58 PM EST) URINE CHLAMYDIA AMP PROBE NEGATIVE [facility] Comment: No Chlamydia Trachomatis RNA detected in this patient's sample (REFERENCE RANGE/NORMAL VALUE: NOT DETECTED) URINE GC AMP PROBE NEGATIVE [facility] Comment: No Neisseria Gonorrhoeae RNA detected in this patient's sample (REFERENCE RANGE/NORMAL VALUE: NOT DETECTED) NOTE: This test uses cycle touring guide-mediated amplification method to detect rRNA from C.Trachomatis [...] without risk of sexual abuse. Consult the [facility] if needed. Contact phone number . Therapeutic failure or success cannot be determined with the Aptima Combo2 assay since nucleic acid may persist following appropriate antimicrobial therapy. The Centers for Disease Control and Prevention (CDC) recommends confirmatory retesting using culture or a different nucleic acid amplification test when positive results occur, if indicated. Testing performed or reported by [facility], a Service of [facility], [facility] [place] [address] CLIA [id number] Victorino Fletcher MD, PhD, Take Up Supervisor 11/12/2015 1:58 PM EST Narrative [facility] - 11/12/2015 1:58 PM EST URINE CHLAMYDIA GC AMP PROBE us Amy Son MD LAB MICROBIOLOGY - GENERAL ORDER WAYLON Final Result [facility] [address] [place] [address], from Last 3 Months or Most Recently Relevant to Health Maintenance Care Teams Tool Specialist Relationship Specialty Start Date End Date Amy Son MD PCP - General 04/27/17
--- OUTSIDE RECORDS SUMMARY | 2025-06-13 18:20 | XMS_ITS | Encounter Summary ---
Author Organization [facility] Address [address] [place] [phone] Phone Care Team Providers Care Orthodontic Lab Technician Name Role Phone Amy Son MD Primary Care Provider Unavailabl e Encounter Details Date Type Department Care Team (Late st Contact Info) Description 11/12/2014 Documentation [facility] [place] [facility] [address] [place] [address] Family Medicine, Physician [facility] [address] [place], [place] [id number] Social History Tobacco Use Types Packs/Day Years [...] on filedocumented in this encounter Care Teams Orthodontic Lab Technician Relationship Specialty Start Date End Date Amy Son MD PCP - General 04/27/17 documented as of this encounter
--- OUTSIDE RECORDS SUMMARY | 2025-06-13 18:20 | XMS_ITS | Clinical Summary ---
Author Organization [facility] Address [address] [place] [address] Care Team Providers Care Photographic Intelligence Officer Name Role Phone Unavailable Primary Care Provider [...] Cervical Cancer Screening: P ap Smear 02/23/2020 Depression Screening 09/17/2024 COVID-19 Vaccine ( - 2023-2 5 season) 2025 Influenza Vaccine (#1) 2025 HIB Vaccines Aged [...]
--- OUTSIDE RECORDS SUMMARY | 2025-06-13 18:20 | XMS_ITS | Encounter Summary ---
Author Organization [facility] Address [address] [place] [phone] Phone Care Team Providers Care Offal Separator Name Role Phone Amy Son MD Primary Care Provider Unavailabl e Encounter Details Date Type Department Care Team (Late st Contact Info) Description 05/11/2015 Documentation [facility] [address] [place] [address] Family Medicine, Physician [facility] [address] [place], [place] [id number] Social History Tobacco Use Types Packs/Day Years [...] on filedocumented in this encounter Care Teams Offal Separator Relationship Specialty Start Date End Date Amy Son MD PCP - General 04/27/17 documented as of this encounter
[2025-06-13 18:40] VITALS: BP 132/79; PULSE 108; RESP 18; TEMP 37.1; O2SAT 98
== END 2025-06-13 18:42 | disposition home or self-care (01) ==
PROVIDERS: Registered Nurse Emergency; Emergency Provider Emergency Medicine; PCP Internal Medicine
DX: B34.9 Viral infection, unspecified (principal); J02.9 Acute pharyngitis, unspecified; R50.9 Fever, unspecified; R51.9 Headache, unspecified; F33.1 Major depressive disorder, recurrent, moderate; Z79.899 Other long term (current) drug therapy; Z87.891 Personal history of nicotine dependence; Z11.52 Encounter for screening for COVID-19
CPT/HCPCS: 87502; 87635; 87651; 99282; 99283